=== PATIENT | male | born 1940 | race Asian ===

== ENCOUNTER 2016-08-17 19:16 | Inpatient (IN) | payer MEDICARE, OTHER ==
[~2016-08-17] VITALS: Ht 167.6 cm; Wt 129.8 kg
[~2016-08-17 19:16] MED LIST: AMLO-512 PO; ASPI-825 PO; CARV25 PO; LIDOCAINE HCL/PF 1% 2 ML VIAL IM ONE; OMEP10 PO; ROSU40 PO
[2016-08-17] MEDS ORDERED: FOLI0.8T2 PO (19:52)
[2016-08-17] MEDS ORDERED: FERR-89 PO (19:52)
[2016-08-17] MEDS ORDERED: LOSA50TA37 PO (19:53)
[2016-08-17 20:14] LABS: BASOPHILS # (AUTO) 0.02 K/uL (0.00-0.20); BASOPHILS % (AUTO) 0.4 % (0.0-2.0); EOSINOPHILS # (AUTO) 0.52 K/uL (0.00-0.70); EOSINOPHILS % (AUTO) 10.41 % (1.0-6.0); HEMOGLOBIN 9.3 g/dL (13.5-17.5); LYMPHOCYTES # (AUTO) 0.7 K/uL (1.0-4.8); LYMPHOCYTES % (AUTO) 13.8 % (22.0-44.0); MEAN CORPUSCULAR HEMOGLOBIN 29.1 pg (26.0-34.0); MEAN CORPUSCULAR VOLUME 88 fL (80-100); MONOCYTES # (AUTO) 0.4 K/uL (0.1-1.0); MONOCYTES % (AUTO) 8.8 % (2.0-9.0); NEUTROPHILS # (AUTO) 3.3 K/uL (1.8-7.7); NEUTROPHILS % (AUTO) 66.5 % (40.0-70.0); PLATELET COUNT (AUTO) 112 K/uL (150-450); RED BLOOD CELL COUNT(AUTO) 3.18 MIL/uL (4.50-5.90); RED CELL DISTRIBUTION WIDTH 15.8 % (11.5-14.5)
[2016-08-17 20:25] LABS: CREATININE 8.53 mg/dL (0.60-1.30); POTASSIUM 5.8 mmol/L (3.5-5.1)
[2016-08-17 20:31] LABS: ALBUMIN 3.5 g/dL (3.4-5.0); BILIRUBIN,TOTAL 0.4 mg/dL (0.1-1.0)
[2016-08-17] MEDS ORDERED: ALBUTEROL SULFATE 2.5 MG/0.5 ML NEB SOLUTION NEB ONE (21:00)
[2016-08-17] MEDS ORDERED: DEXTROSE 50%-WATER 25 GM/50 ML SYRINGE IVP ONE (21:00)
[2016-08-17] MEDS ORDERED: SODIUM BICARBONATE [ADULT] 8.4% 50 MEQ/50 ML SYRINGE IVP ONE (21:00)
[2016-08-17] MEDS ORDERED: INSULIN REGULAR, HUMAN 100 UNITS/ML IVP ONE (21:00)
[2016-08-17] MEDS ORDERED: SODIUM POLYSTYRENE SULFONATE 15 GM/60 ML SUSPENSION BOTTLE PO ONE (21:00)
[2016-08-17] MEDS ORDERED: 0.9% SODIUM CHLORIDE 5 ML NEB SOLUTION NEB ONE (22:00)
[2016-08-17] MEDS ORDERED: ACETAMINOPHEN 325 MG TABLET PO PRN (22:15)
[2016-08-17] MEDS ORDERED: ALBUTEROL SULFATE 2.5 MG/0.5 ML NEB SOLUTION NEB PRN (22:15)
[2016-08-17] MEDS ORDERED: BISACODYL 10 MG RECTAL RECTAL SUPPOSITORY PR PRN (22:15)
[2016-08-17 23:46] VITALS: BP 153/71
[2016-08-18] MEDS ORDERED: LIDOCAINE HCL/PF 1% 2 ML VIAL INJ ONE
[2016-08-18 04:27] VITALS: BP 151/79
[2016-08-18 06:46] LABS: CALCIUM, TOTAL 8.1 mg/dL (8.8-10.5); CREATININE 8.42 mg/dL (0.60-1.30); POTASSIUM 4.7 mmol/L (3.5-5.1)
[2016-08-18 07:51] VITALS: BP 171/84
[2016-08-18] MEDS: PANTOPRAZOLE SODIUM 40 MG DR TABLET PO SCH (08:18)
[2016-08-18] MEDS: HEPARIN SODIUM,PORCINE 5,000 UNITS/ML VIAL SQ SCH ×2 (08:18→21:02)
[2016-08-18] MEDS: DOCUSATE SODIUM 100 MG CAPSULE PO SCH ×3 (08:18→21:01)
[2016-08-18] MEDS: ASPIRIN 81 MG CHEWABLE TABLET PO SCH (08:19)
[2016-08-18] MEDS: VITAMIN B COMP/VIT C/FOLIC ACID CAPSULE PO SCH ×2 (08:19→12:13)
[2016-08-18] MEDS: CARVEDILOL 12.5 MG TABLET PO SCH ×2 (08:19→21:01)
[2016-08-18 11:00] VITALS: BP 136/67
[2016-08-18] MEDS ORDERED: SODIUM CHLORIDE 0.9% 2,000 ML IV ONE (13:09)
[2016-08-18 15:42] VITALS: BP 175/93
[2016-08-18] MEDS ORDERED: ALBUMIN HUMAN 25%-12.5GM/50ML IV BOTTLE IV ONE (18:22)
[2016-08-18 19:46] VITALS: BP 164/82
[2016-08-18] MEDS: ROSUVASTATIN CALCIUM 20 MG TABLET PO SCH (21:01)
[2016-08-18 23:49] VITALS: BP 140/70
[2016-08-19] VITALS (7 sets, daily range): BP systolic 144–188; BP diastolic 74–89
[2016-08-19 07:49] LABS: POTASSIUM 4.3 mmol/L (3.5-5.1)
[2016-08-19 07:50] LABS: CALCIUM, TOTAL 8.5 mg/dL (8.8-10.5); CREATININE 5.95 mg/dL (0.60-1.30); MAGNESIUM 1.5 mg/dL (1.80-2.40); PHOSPHORUS 4.9 mg/dL (2.5-4.9)
[2016-08-19] MEDS: VITAMIN B COMP/VIT C/FOLIC ACID CAPSULE PO SCH ×2 (09:00→09:34)
[2016-08-19] MEDS: CARVEDILOL 12.5 MG TABLET PO SCH ×2 (09:00→22:05)
[2016-08-19] MEDS: DOCUSATE SODIUM 100 MG CAPSULE PO SCH ×2 (09:00→22:05)
[2016-08-19] MEDS ORDERED: MAGNESIUM SULFATE 2 GM in DEXTROSE 5%-WATER 50 ML IV ONE (09:00)
[2016-08-19] MEDS: PANTOPRAZOLE SODIUM 40 MG DR TABLET PO SCH (09:34)
[2016-08-19] MEDS: ASPIRIN 81 MG CHEWABLE TABLET PO SCH (09:34)
[2016-08-19] MEDS: HEPARIN SODIUM,PORCINE 5,000 UNITS/ML VIAL SQ SCH ×2 (09:35→22:06)
[2016-08-19] MEDS ORDERED: SODIUM CHLORIDE 0.9% 2,000 ML IV ONE (11:34)
[2016-08-19] MEDS: CHOLECALCIFEROL (VIT D3) 1,000 UNITS TABLET PO SCH (12:00)
[2016-08-19] MEDS ORDERED: ALBUMIN HUMAN 25%-12.5GM/50ML IV BOTTLE IV PRN (12:15)
[2016-08-19] MEDS ORDERED: DiphenhydrAMINE HCL 50 MG/ML VIAL IVP PRN (12:15)
[2016-08-19] MEDS ORDERED: LIDOCAINE HCL/PF 1% 2 ML VIAL ID PRN (12:15)
[2016-08-19] MEDS ORDERED: MANNITOL 25%-12.5 GM/50 ML VIAL IVP PRN (12:15)
[2016-08-19] MEDS: ROSUVASTATIN CALCIUM 20 MG TABLET PO SCH (22:05)
[2016-08-20 03:55] VITALS: BP 144/73
[2016-08-20 06:58] LABS: BASOPHILS % (AUTO) 0.3 % (0.0-2.0); EOSINOPHILS % (AUTO) 7.4 % (1.0-6.0); HEMATOCRIT 34.5 % (41-53); HEMOGLOBIN 11.2 g/dL (13.5-17.5); LYMPHOCYTES # (AUTO) 1.2 K/uL (1.0-4.8); LYMPHOCYTES % (AUTO) 19.8 % (22.0-44.0); MEAN CORPUSCULAR HEMOGLOBIN 28.7 pg (26.0-34.0); MEAN CORPUSCULAR HGB CONC 32.4 G/dL (31.0-37.0); MEAN CORPUSCULAR VOLUME 89 fL (80-100); MONOCYTES # (AUTO) 0.7 K/uL (0.1-1.0); MONOCYTES % (AUTO) 10.7 % (2.0-9.0); NEUTROPHILS # (AUTO) 3.8 K/uL (1.8-7.7); NEUTROPHILS % (AUTO) 61.8 % (40.0-70.0); PLATELET COUNT (AUTO) 120 K/uL (150-450); RED CELL DISTRIBUTION WIDTH 15.8 % (11.5-14.5); WHITE BLOOD COUNT (AUTO) 6.2 K/uL (4.5-11.0)
[2016-08-20 07:35] LABS: CALCIUM, TOTAL 8.7 mg/dL (8.8-10.5); CREATININE 4.59 mg/dL (0.60-1.30); MAGNESIUM 1.6 mg/dL (1.80-2.40); PHOSPHORUS 4.2 mg/dL (2.5-4.9); POTASSIUM 3.9 mmol/L (3.5-5.1)
[2016-08-20 08:01] VITALS: BP 162/74
[2016-08-20] MEDS: DOCUSATE SODIUM 100 MG CAPSULE PO SCH ×2 (10:03→20:57)
[2016-08-20] MEDS: EPOETIN ALFA 10,000 UNITS/ML VIAL SQ SCH (10:03)
[2016-08-20] MEDS: HEPARIN SODIUM,PORCINE 5,000 UNITS/ML VIAL SQ SCH ×2 (10:03→20:57)
[2016-08-20] MEDS: CHOLECALCIFEROL (VIT D3) 1,000 UNITS TABLET PO SCH (10:04)
[2016-08-20] MEDS: PANTOPRAZOLE SODIUM 40 MG DR TABLET PO SCH (10:04)
[2016-08-20] MEDS: ASPIRIN 81 MG CHEWABLE TABLET PO SCH (10:04)
[2016-08-20] MEDS: VITAMIN B COMP/VIT C/FOLIC ACID CAPSULE PO SCH (10:04)
[2016-08-20] MEDS: CARVEDILOL 12.5 MG TABLET PO SCH ×2 (10:04→20:57)
[2016-08-20 11:02] VITALS: BP 141/76
[2016-08-20 15:34] VITALS: BP 150/68
[2016-08-20] MEDS ORDERED: MAGNESIUM OXIDE 400 MG TABLET PO ONE (16:00)
[2016-08-20] MEDS ORDERED: OMEP20 PO (16:06)
[2016-08-20] MEDS ORDERED: ROSU20 PO (16:06)
[2016-08-20 20:26] VITALS: BP 151/74
[2016-08-20] MEDS: ROSUVASTATIN CALCIUM 20 MG TABLET PO SCH (20:57)
[2016-08-20 23:27] VITALS: BP 134/65
[2016-08-21 04:21] VITALS: BP 147/67
[2016-08-21 07:18] VITALS: BP 157/73
[2016-08-21] MEDS: ASPIRIN 81 MG CHEWABLE TABLET PO SCH ×2 (08:47→08:55)
[2016-08-21] MEDS: HEPARIN SODIUM,PORCINE 5,000 UNITS/ML VIAL SQ SCH ×2 (08:48→21:24)
[2016-08-21] MEDS: CHOLECALCIFEROL (VIT D3) 1,000 UNITS TABLET PO SCH (08:48)
[2016-08-21] MEDS: PANTOPRAZOLE SODIUM 40 MG DR TABLET PO SCH (08:48)
[2016-08-21] MEDS: DOCUSATE SODIUM 100 MG CAPSULE PO SCH ×2 (08:48→21:24)
[2016-08-21] MEDS: CARVEDILOL 12.5 MG TABLET PO SCH ×2 (09:00→21:00)
[2016-08-21 11:07] VITALS: BP 144/74
[2016-08-21] MEDS ORDERED: CARV12 PO (12:50)
[2016-08-21 15:37] VITALS: BP 151/85
[2016-08-21 17:19] LABS: MAGNESIUM 1.4 mg/dL (1.80-2.40); POTASSIUM 3.1 mmol/L (3.5-5.1)
[2016-08-21] MEDS ORDERED: CARVEDILOL 25 MG TABLET PO ONE (17:45)
[2016-08-21] MEDS ORDERED: MAGNESIUM OXIDE 400 MG TABLET PO ONE (17:45)
[2016-08-21] MEDS ORDERED: POTASSIUM CHLORIDE 20 MEQ ER TABLET PO ONE (17:45)
[2016-08-21] MEDS: VITAMIN B COMP/VIT C/FOLIC ACID CAPSULE PO SCH (17:51)
[2016-08-21 20:40] VITALS: BP 101/65
[2016-08-21] MEDS: ROSUVASTATIN CALCIUM 20 MG TABLET PO SCH (21:24)
[2016-08-22 00:22] VITALS: BP 133/65
[2016-08-22 06:20] VITALS: BP 128/66
[2016-08-22 06:37] LABS: MAGNESIUM 1.5 mg/dL (1.80-2.40)
[2016-08-22 07:10] VITALS: BP 162/78
[2016-08-22] MEDS: CHOLECALCIFEROL (VIT D3) 1,000 UNITS TABLET PO SCH ×2 (07:59→08:00)
[2016-08-22] MEDS: VITAMIN B COMP/VIT C/FOLIC ACID CAPSULE PO SCH (08:00)
[2016-08-22] MEDS: PANTOPRAZOLE SODIUM 40 MG DR TABLET PO SCH (08:00)
[2016-08-22] MEDS: DOCUSATE SODIUM 100 MG CAPSULE PO SCH ×2 (08:00→08:04)
[2016-08-22] MEDS: ASPIRIN 81 MG CHEWABLE TABLET PO SCH (08:00)
[2016-08-22] MEDS: CARVEDILOL 12.5 MG TABLET PO SCH (08:00)
[2016-08-22] MEDS: HEPARIN SODIUM,PORCINE 5,000 UNITS/ML VIAL SQ SCH (08:01)
[2016-08-22] MEDS: EPOETIN ALFA 10,000 UNITS/ML VIAL SQ SCH (08:02)
[2016-08-22 11:03] VITALS: BP 144/71
[2016-08-22] MEDS ORDERED: MAGNESIUM OXIDE 400 MG TABLET PO ONE (11:30)
[2016-08-22] MEDS ORDERED: MAGN400T40 PO (12:12)
== END 2016-08-22 13:00 | disposition home or self-care (01) | DRG 682 ==
LOC: EMS 19:20 → 5N 22:00
PROVIDERS: ADMIT Internal Medicine; ATTEND Internal Medicine
PROC: 5A1D60Z (ICD-10-PCS; principal; 2016-08-18)
DX: I12.0 Hypertensive chronic kidney disease with stage 5 chronic kidney disease or end stage renal disease (principal); N18.6 End stage renal disease; E87.2 Acidosis; E87.5 Hyperkalemia; I48.91 Unspecified atrial fibrillation; D63.8 Anemia in other chronic diseases classified elsewhere; M10.9 Gout, unspecified; I25.10 Atherosclerotic heart disease of native coronary artery without angina pectoris; E78.5 Hyperlipidemia, unspecified; E55.9 Vitamin D deficiency, unspecified; Z79.82 Long term (current) use of aspirin; Z79.899 Other long term (current) drug therapy; Z98.890 Other specified postprocedural states; Z95.1 Presence of aortocoronary bypass graft; Z99.2 Dependence on renal dialysis
CPT/HCPCS: 82306; 83540; 83550; 83735; 83970; 84100; 84132; 87340; 90935; 93005; 94640; 96374; 96375; 99285; J0885; J1644; J1815; J3475; J3490; J7030; J7060; P9047

== ENCOUNTER 2017-03-21 17:10 | Inpatient (IN) | payer MEDICARE, OTHER ==
[~2017-03-21] VITALS: Ht 167.6 cm; Wt 59.0 kg
[~2017-03-21 17:10] MED LIST changes: +CARV12 PO; -CARV25 PO; +FOLI0.8T2 PO; -LIDOCAINE HCL/PF 1% 2 ML VIAL IM ONE; +MAGN400T40 PO; -OMEP10 PO; +OMEP20 PO; +ROSU20 PO; -ROSU40 PO
[2017-03-21 18:40] LABS: BASOPHILS # (AUTO) 0.01 K/uL (0.00-0.20); BASOPHILS % (AUTO) 0.2 % (0.0-2.0); EOSINOPHILS # (AUTO) 0.26 K/uL (0.00-0.70); EOSINOPHILS % (AUTO) 3.53 % (1.0-6.0); HEMATOCRIT 35.9 % (41-53); HEMOGLOBIN 11.9 g/dL (13.5-17.5); LYMPHOCYTES # (AUTO) 0.9 K/uL (1.0-4.8); LYMPHOCYTES % (AUTO) 12.2 % (22.0-44.0); MEAN CORPUSCULAR HEMOGLOBIN 29.6 pg (26.0-34.0); MEAN CORPUSCULAR HGB CONC 33.2 G/dL (31.0-37.0); MEAN CORPUSCULAR VOLUME 89 fL (80-100); MONOCYTES # (AUTO) 0.5 K/uL (0.1-1.0); MONOCYTES % (AUTO) 7.3 % (2.0-9.0); NEUTROPHILS # (AUTO) 5.6 K/uL (1.8-7.7); NEUTROPHILS % (AUTO) 76.9 % (40.0-70.0); PLATELET COUNT (AUTO) 154 K/uL (150-450); RED BLOOD CELL COUNT(AUTO) 4.03 MIL/uL (4.50-5.90); RED CELL DISTRIBUTION WIDTH 14.5 % (11.5-14.5); WHITE BLOOD COUNT (AUTO) 7.3 K/uL (4.5-11.0)
[2017-03-21 18:54] LABS: ANION GAP 8 mmol/L (8-16); CALCIUM, TOTAL 8.9 mg/dL (8.8-10.5); CARBON DIOXIDE 30 mmol/L (22-29); CHLORIDE 100 mmol/L (98-107); GLOMERULAR FILTR. RATE CALC 9 mL/min (>60); POTASSIUM 5.4 mmol/L (3.5-5.1); SODIUM SERUM 138 mmol/L (136-145); UREA NITROGEN, BLOOD 24 mg/dL (7-18)
[2017-03-21 18:56] LABS: INR 1.1 (0.9-1.1); PROTHROMBIN TIME 11.5 SEC (9.4-11.6)
[2017-03-21 18:59] LABS: ALANINE AMINOTRANSFERASE 30 U/L (12-78); ALBUMIN 3.7 g/dL (3.4-5.0); ASPARTATE AMINOTRANSFERASE 18 U/L (15-37); BILIRUBIN,TOTAL 0.4 mg/dL (0.1-1.0); CREATINE KINASE, TOTAL 74 U/L (39-308); TOTAL PROTEIN, SERUM 8.1 g/dL (6.4-8.2)
[2017-03-21] MEDS ORDERED: ACETAMINOPHEN 325 MG TABLET PO PRN (19:45)
[2017-03-21] MEDS ORDERED: 0.9% SODIUM CHLORIDE 10 ML SYRINGE IVP PRN (19:45)
[2017-03-21] MEDS ORDERED: ONDANSETRON HCL 4 MG/2 ML VIAL IVP PRN (19:45)
[2017-03-21 20:09] VITALS: BP 133/75
[2017-03-21 20:23] LABS: LACTIC ACID 2.6 mmol/L (0.4-2.0)
[2017-03-21 20:31] LABS: REFLEX LACTIC ACID? YES YES
[2017-03-21 23:58] VITALS: BP 123/67
[2017-03-22] MEDS ORDERED: OxyCODONE HCL/ACETAMINOPHEN 5-325 MG TABLET PO PRN ×2 (01:00)
[2017-03-22] MEDS ORDERED: ONDANSETRON HCL 4 MG/2 ML VIAL IVP PRN (01:00)
[2017-03-22] MEDS ORDERED: ACETAMINOPHEN 325 MG TABLET PO PRN (01:00)
[2017-03-22] MEDS ORDERED: 0.9% SODIUM CHLORIDE 10 ML SYRINGE IVP PRN (01:00)
[2017-03-22] MEDS ORDERED: MAGNESIUM HYDROXIDE SUSPENSION 30 ML UDCUP PO PRN (01:00)
[2017-03-22] MEDS ORDERED: INFLUENZA VIRUS VACCINE QVS 2017-18 (3YR+)/PF 60 MCG/0.5 ML SYRINGE IM ONE (01:15)
[2017-03-22] MEDS ORDERED: PNEUMOCOCCAL VACCINE POLYVALENT 0.5 ML VIAL [PPSV23] IM ONE (01:15)
[2017-03-22] MEDS: CARVEDILOL 12.5 MG TABLET PO SCH ×3 (02:02→21:00)
[2017-03-22 05:03] VITALS: BP 142/66
[2017-03-22 06:23] LABS: BASOPHILS % (AUTO) 0.3 % (0.0-2.0); EOSINOPHILS % (AUTO) 2.5 % (1.0-6.0); HEMOGLOBIN 12.4 g/dL (13.5-17.5); LYMPHOCYTES # (AUTO) 1.4 K/uL (1.0-4.8); LYMPHOCYTES % (AUTO) 19.2 % (22.0-44.0); MEAN CORPUSCULAR HEMOGLOBIN 30.2 pg (26.0-34.0); MEAN CORPUSCULAR HGB CONC 33.6 G/dL (31.0-37.0); MEAN CORPUSCULAR VOLUME 90 fL (80-100); MONOCYTES # (AUTO) 0.5 K/uL (0.1-1.0); MONOCYTES % (AUTO) 7.2 % (2.0-9.0); NEUTROPHILS # (AUTO) 5.3 K/uL (1.8-7.7); NEUTROPHILS % (AUTO) 70.8 % (40.0-70.0); PLATELET COUNT (AUTO) 175 K/uL (150-450); RED BLOOD CELL COUNT(AUTO) 4.11 MIL/uL (4.50-5.90); RED CELL DISTRIBUTION WIDTH 14.6 % (11.5-14.5); WHITE BLOOD COUNT (AUTO) 7.5 K/uL (4.5-11.0)
[2017-03-22 06:36] LABS: ALBUMIN 3.8 g/dL (3.4-5.0); BILIRUBIN,TOTAL 0.4 mg/dL (0.1-1.0); CALCIUM, TOTAL 9.1 mg/dL (8.8-10.5); CREATININE 7.17 mg/dL (0.60-1.30); POTASSIUM 4.8 mmol/L (3.5-5.1); TOTAL PROTEIN, SERUM 8.3 g/dL (6.4-8.2)
[2017-03-22 07:28] VITALS: BP 111/68
[2017-03-22] MEDS ORDERED: PANTOPRAZOLE SODIUM 40 MG/VIAL IVP SCH (09:00)
[2017-03-22] MEDS: MAGNESIUM OXIDE 400 MG TABLET PO SCH (09:35)
[2017-03-22] MEDS: ASPIRIN 81 MG CHEWABLE TABLET PO SCH (09:35)
[2017-03-22] MEDS: DOCUSATE SODIUM 100 MG CAPSULE PO SCH ×2 (09:35→21:00)
[2017-03-22] MEDS: VITAMIN B COMP/VIT C/FOLIC ACID CAPSULE PO SCH (12:24)
[2017-03-22] MEDS: AmLODIPine BESYLATE 10 MG TABLET PO SCH (12:24)
[2017-03-22 12:25] VITALS: BP 138/68
[2017-03-22 15:51] VITALS: BP 129/64
[2017-03-22] MEDS ORDERED: ROSUVASTATIN CALCIUM 20 MG TABLET PO SCH (18:00)
[2017-03-22 19:31] VITALS: BP 118/63
[2017-03-22 23:42] VITALS: BP 133/65
[2017-03-23 04:32] VITALS: BP 137/73
[2017-03-23 06:47] LABS: BASOPHILS % (AUTO) 0.2 % (0.0-2.0); EOSINOPHILS % (AUTO) 4.9 % (1.0-6.0); HEMATOCRIT 35.9 % (41-53); HEMOGLOBIN 12.1 g/dL (13.5-17.5); LYMPHOCYTES # (AUTO) 1.3 K/uL (1.0-4.8); LYMPHOCYTES % (AUTO) 16.9 % (22.0-44.0); MEAN CORPUSCULAR HEMOGLOBIN 30.1 pg (26.0-34.0); MEAN CORPUSCULAR HGB CONC 33.6 G/dL (31.0-37.0); MEAN CORPUSCULAR VOLUME 90 fL (80-100); MONOCYTES # (AUTO) 0.6 K/uL (0.1-1.0); MONOCYTES % (AUTO) 7.8 % (2.0-9.0); NEUTROPHILS # (AUTO) 5.4 K/uL (1.8-7.7); NEUTROPHILS % (AUTO) 70.2 % (40.0-70.0); PLATELET COUNT (AUTO) 169 K/uL (150-450); RED BLOOD CELL COUNT(AUTO) 4.01 MIL/uL (4.50-5.90); RED CELL DISTRIBUTION WIDTH 14.3 % (11.5-14.5); WHITE BLOOD COUNT (AUTO) 7.6 K/uL (4.5-11.0)
[2017-03-23 07:23] LABS: CREATININE 9.32 mg/dL (0.60-1.30); POTASSIUM 5.9 mmol/L (3.5-5.1)
[2017-03-23 07:36] VITALS: BP 141/75
[2017-03-23] MEDS: AmLODIPine BESYLATE 10 MG TABLET PO SCH (08:31)
[2017-03-23] MEDS: CARVEDILOL 12.5 MG TABLET PO SCH (08:31)
[2017-03-23] MEDS: VITAMIN B COMP/VIT C/FOLIC ACID CAPSULE PO SCH (08:41)
[2017-03-23] MEDS: ASPIRIN 81 MG CHEWABLE TABLET PO SCH (08:41)
[2017-03-23] MEDS: MAGNESIUM OXIDE 400 MG TABLET PO SCH (08:41)
[2017-03-23] MEDS: DOCUSATE SODIUM 100 MG CAPSULE PO SCH (08:48)
[2017-03-23] MEDS ORDERED: PANTOPRAZOLE SODIUM 40 MG DR TABLET PO SCH (09:00)
[2017-03-23] MEDS ORDERED: SODIUM CHLORIDE 0.9% 2,000 ML IV ONE (09:06)
[2017-03-23 11:27] VITALS: BP 136/65
== END 2017-03-23 13:20 | disposition home or self-care (01) | DRG 312 ==
LOC: EMS 17:12 → 5S 19:39
PROVIDERS: ADMIT Internal Medicine; ATTEND Internal Medicine
PROC: 3E0234Z Introduction of Serum, Toxoid and Vaccine into Muscle, Percutaneous Approach (ICD-10-PCS; 2017-03-22)
PROC: 5A1D70Z Performance of Urinary Filtration, Intermittent, Less than 6 Hours Per Day (ICD-10-PCS; principal; 2017-03-23)
DX: R55 Syncope and collapse (principal); E87.5 Hyperkalemia; I13.11 Hypertensive heart and chronic kidney disease without heart failure, with stage 5 chronic kidney disease, or end stage renal disease; N18.6 End stage renal disease; E55.9 Vitamin D deficiency, unspecified; E78.5 Hyperlipidemia, unspecified; I25.10 Atherosclerotic heart disease of native coronary artery without angina pectoris; M10.9 Gout, unspecified; Z95.1 Presence of aortocoronary bypass graft; Z79.82 Long term (current) use of aspirin; Z79.899 Other long term (current) drug therapy; Z99.2 Dependence on renal dialysis; Z23 Encounter for immunization
CPT/HCPCS: 70450; 83605; 87040; 87081; 90935; 93005; 93306; 93880; 99285; C9113; J7030

== ENCOUNTER 2017-10-08 12:25 | Emergency (ER) | payer MEDICARE, OTHER ==
[~2017-10-08] VITALS: Ht 165.1 cm; Wt 65.9 kg
[~2017-10-08 12:25] MED LIST changes: +FOLI0.8T22 PO; +LEVO2.5S4 PO; -MAGN400T40 PO
[2017-10-08] MEDS ORDERED: FURO20 PO (12:58)
[2017-10-08 13:15] LABS: GLUCOSE,POINT OF CARE 154 MG/DL (70-110)
[2017-10-08 13:19] LABS: BASOPHILS % (AUTO) 0.4 % (0.0-2.0); EOSINOPHILS % (AUTO) 3.3 % (1.0-6.0); HEMATOCRIT 31.3 % (41-53); HEMOGLOBIN 10.3 g/dL (13.5-17.5); LYMPHOCYTES % (AUTO) 13.5 % (22.0-44.0); MEAN CORPUSCULAR HEMOGLOBIN 26.7 pg (26.0-34.0); MEAN CORPUSCULAR VOLUME 81 fL (80-100); MONOCYTES # (AUTO) 0.8 K/uL (0.1-1.0); MONOCYTES % (AUTO) 10.5 % (2.0-9.0); NEUTROPHILS # (AUTO) 5.3 K/uL (1.8-7.7); NEUTROPHILS % (AUTO) 72.3 % (40.0-70.0); PLATELET COUNT (AUTO) 249 K/uL (150-450); RED BLOOD CELL COUNT(AUTO) 3.87 MIL/uL (4.50-5.90); RED CELL DISTRIBUTION WIDTH 18.1 % (11.5-14.5)
[2017-10-08 13:31] LABS: PROTHROMBIN TIME 10.9 SEC (9.4-11.6)
[2017-10-08 13:42] LABS: B-TYPE NATRIURETIC PEPTIDE 793 pg/mL (0-100)
[2017-10-08 14:22] VITALS: BP 123/63
[2017-10-08 14:24] LABS: ANION GAP 12 mmol/L (8-16); CALCIUM, TOTAL 8.7 mg/dL (8.8-10.5); CARBON DIOXIDE 30 mmol/L (22-29); CHLORIDE 97 mmol/L (98-107); CREATININE 5.49 mg/dL (0.60-1.30); GLOMERULAR FILTR. RATE CALC 10 mL/min (>60); GLUCOSE,RANDOM 142 mg/dL (70-110); POTASSIUM 3.2 mmol/L (3.5-5.1); SODIUM SERUM 139 mmol/L (136-145); UREA NITROGEN, BLOOD 17 mg/dL (7-18)
[2017-10-08 14:31] LABS: ALANINE AMINOTRANSFERASE 15 U/L (12-78); ALBUMIN 3.5 g/dL (3.4-5.0); ALKALINE PHOSPHATASE 72 U/L (46-116); ASPARTATE AMINOTRANSFERASE 12 U/L (15-37); BILIRUBIN,TOTAL 0.4 mg/dL (0.1-1.0); CREATINE KINASE, TOTAL 68 U/L (39-308); TOTAL PROTEIN, SERUM 8.3 g/dL (6.4-8.2)
== END 2017-10-08 15:17 | disposition home or self-care (01) ==
LOC: EMS 12:26
DX: R55 Syncope and collapse (principal); I11.0 Hypertensive heart disease with heart failure; I50.9 Heart failure, unspecified; E78.00 Pure hypercholesterolemia, unspecified; I25.2 Old myocardial infarction; K21.9 Gastro-esophageal reflux disease without esophagitis
CPT/HCPCS: 93005; 99285

== ENCOUNTER 2018-01-11 16:46 | Emergency (ER) | payer MEDICARE, OTHER ==
[~2018-01-11] VITALS: Ht 170.2 cm; Wt 64.0 kg
[~2018-01-11 16:46] MED LIST changes: +FURO20 PO
[2018-01-11 17:26] LABS: BASOPHILS % (AUTO) 0.7 % (0.0-2.0); EOSINOPHILS % (AUTO) 2.9 % (1.0-6.0); HEMATOCRIT 35.7 % (41-53); HEMOGLOBIN 11.8 g/dL (13.5-17.5); LYMPHOCYTES # (AUTO) 1.4 K/uL (1.0-4.8); LYMPHOCYTES % (AUTO) 29.5 % (22.0-44.0); MEAN CORPUSCULAR HEMOGLOBIN 29.7 pg (26.0-34.0); MEAN CORPUSCULAR VOLUME 90 fL (80-100); MONOCYTES # (AUTO) 0.6 K/uL (0.1-1.0); MONOCYTES % (AUTO) 12.8 % (2.0-9.0); NEUTROPHILS # (AUTO) 2.6 K/uL (1.8-7.7); NEUTROPHILS % (AUTO) 54.1 % (40.0-70.0); PLATELET COUNT (AUTO) 175 K/uL (150-450); RED BLOOD CELL COUNT(AUTO) 3.96 MIL/uL (4.50-5.90); RED CELL DISTRIBUTION WIDTH 17.5 % (11.5-14.5)
[2018-01-11 17:43] LABS: CALCIUM, TOTAL 8.8 mg/dL (8.8-10.5); CREATININE 6.54 mg/dL (0.60-1.30); POTASSIUM 3.6 mmol/L (3.5-5.1)
[2018-01-11 17:46] LABS: PROTHROMBIN TIME 10.2 SEC (9.4-11.6)
[2018-01-11 17:48] LABS: ALBUMIN 3.5 g/dL (3.4-5.0); BILIRUBIN,TOTAL 0.5 mg/dL (0.1-1.0); TOTAL PROTEIN, SERUM 7.4 g/dL (6.4-8.2)
[2018-01-11 19:08] VITALS: BP 123/69
== END 2018-01-11 19:55 | disposition home or self-care (01) ==
LOC: EMS 16:47
DX: R55 Syncope and collapse (principal); K21.9 Gastro-esophageal reflux disease without esophagitis; I25.2 Old myocardial infarction; E78.00 Pure hypercholesterolemia, unspecified; I13.2 Hypertensive heart and chronic kidney disease with heart failure and with stage 5 chronic kidney disease, or end stage renal disease; N18.6 End stage renal disease; I50.9 Heart failure, unspecified; Z99.2 Dependence on renal dialysis; Z95.1 Presence of aortocoronary bypass graft; Z79.899 Other long term (current) drug therapy; Z79.82 Long term (current) use of aspirin
CPT/HCPCS: 93005; 99285

== ENCOUNTER 2019-05-06 03:23 | Inpatient (IN) | payer MEDICARE, OTHER ==
[~2019-05-06] VITALS: Ht 170.2 cm; Wt 67.1 kg
[~2019-05-06 03:23] MED LIST changes: -AMLO-512 PO; +AMLO10TA7 PO; -ROSU20 PO; +ROSU20TA23 PO
[2019-05-06 05:31] LABS: BASOPHILS % (AUTO) 0.7 % (0.0-2.0); EOSINOPHILS % (AUTO) 5.5 % (1.0-6.0); HEMATOCRIT 39.4 % (41-53); HEMOGLOBIN 13.1 g/dL (13.5-17.5); LYMPHOCYTES # (AUTO) 1.5 K/uL (1.0-4.8); LYMPHOCYTES % (AUTO) 23.1 % (22.0-44.0); MEAN CORPUSCULAR HEMOGLOBIN 30.8 pg (26.0-34.0); MEAN CORPUSCULAR HGB CONC 33.3 G/dL (31.0-37.0); MEAN CORPUSCULAR VOLUME 93 fL (80-100); MONOCYTES # (AUTO) 0.7 K/uL (0.1-1.0); MONOCYTES % (AUTO) 10.2 % (2.0-9.0); NEUTROPHILS # (AUTO) 3.9 K/uL (1.8-7.7); NEUTROPHILS % (AUTO) 60.5 % (40.0-70.0); PLATELET COUNT (AUTO) 187 K/uL (150-450); RED BLOOD CELL COUNT(AUTO) 4.24 MIL/uL (4.50-5.90); RED CELL DISTRIBUTION WIDTH 13.9 % (11.5-14.5)
[2019-05-06 05:40] LABS: CALCIUM, TOTAL 9.7 mg/dL (8.8-10.5); CREATININE 8.5 mg/dL (0.60-1.30); POTASSIUM 4.8 mmol/L (3.5-5.1)
[2019-05-06 05:45] LABS: ALBUMIN 4.1 g/dL (3.4-5.0); BILIRUBIN,TOTAL 0.6 mg/dL (0.1-1.0); TOTAL PROTEIN, SERUM 8.1 g/dL (6.4-8.2)
[2019-05-06] MEDS ORDERED: SODIUM CHLORIDE 0.9% 500 ML IV ONE (06:45)
[2019-05-06] MEDS ORDERED: ACETAMINOPHEN 325 MG TABLET PO PRN ×2 (07:15→19:30)
[2019-05-06] MEDS ORDERED: 0.9% SODIUM CHLORIDE 10 ML SYRINGE IVP PRN (07:15)
[2019-05-06] MEDS ORDERED: ONDANSETRON HCL 4 MG/2 ML VIAL IVP PRN ×2 (07:15→19:30)
[2019-05-06 12:48] LABS: APPEARANCE,URINE CLEAR (CLEAR); BILIRUBIN,URINE NEGATIVE (NEGATIVE); GLUCOSE, URINE (UA) 100 mg/dL (NEGATIVE); KETONES,URINE NEGATIVE (NEGATIVE); LEUKOCYTE ESTERASE ,URINE NEGATIVE (NEGATIVE); NITRATE,URINE NEGATIVE (NEGATIVE); OCCULT BLOOD,URINE SMALL (NEGATIVE); PH,URINE 8.5 (5.0-8.0); PROTEIN,URINE SEE CONFIRM (NEGATIVE); UROBILINOGEN,URINE 0.2 mg/dL (<=1.0)
[2019-05-06 13:01] LABS: SULFOSALICYLIC ACID,URINE 3+ (Negative)
[2019-05-06 13:02] LABS: BACTERIA,URINE None Seen /HPF (None Seen); WBC,URINE None Seen /HPF (0-5)
[2019-05-06] MEDS: ASPIRIN 81 MG CHEWABLE TABLET PO SCH (13:49)
[2019-05-06] MEDS: ROSUVASTATIN CALCIUM 20 MG TABLET PO SCH (13:49)
[2019-05-06] MEDS: AmLODIPine BESYLATE 10 MG TABLET PO SCH (13:49)
[2019-05-06] MEDS: CARVEDILOL 12.5 MG TABLET PO SCH ×2 (13:49→22:27)
[2019-05-06] MEDS ORDERED: MECL-160 PO (14:56)
[2019-05-06 17:55] VITALS: BP 117/68
[2019-05-06] MEDS ORDERED: HYDROCODONE/ACETAMINOPHEN 5-325 MG TABLET PO PRN (19:30)
[2019-05-06] MEDS ORDERED: BISACODYL 10 MG RECTAL RECTAL SUPPOSITORY PR PRN (19:30)
[2019-05-06] MEDS ORDERED: ZOLPIDEM TARTRATE 5 MG TABLET PO PRN (19:30)
[2019-05-06] MEDS ORDERED: IPRATROPIUM BROMIDE 0.5 MG/2.5 ML NEB SOLUTION NEB PRN (19:30)
[2019-05-06] MEDS ORDERED: MAGNESIUM HYDROXIDE SUSPENSION 30 ML UDCUP PO PRN (19:30)
[2019-05-06] MEDS ORDERED: ALBUTEROL SULFATE 2.5 MG/0.5 ML NEB SOLUTION NEB PRN (19:30)
[2019-05-06] MEDS ORDERED: MORPHINE SULFATE 2 MG/ML SYRINGE IVP PRN (19:30)
[2019-05-06] MEDS ORDERED: INFLUENZA VIRUS VACCINE QVS 2019-20 (3YR+)/PF 60 MCG/0.5 ML SYRINGE IM ONE (19:45)
[2019-05-06 20:09] VITALS: BP 141/67
[2019-05-06] MEDS: FAMOTIDINE 20 MG TABLET PO SCH (22:27)
[2019-05-06] MEDS: DOCUSATE SODIUM 100 MG CAPSULE PO SCH (22:27)
[2019-05-07 00:06] VITALS: BP 126/72
[2019-05-07 05:12] VITALS: BP 139/72
[2019-05-07 06:56] LABS: BASOPHILS % (AUTO) 0.7 % (0.0-2.0); EOSINOPHILS % (AUTO) 8.4 % (1.0-6.0); HEMATOCRIT 33.9 % (41-53); HEMOGLOBIN 11.5 g/dL (13.5-17.5); LYMPHOCYTES # (AUTO) 1.1 K/uL (1.0-4.8); LYMPHOCYTES % (AUTO) 22.9 % (22.0-44.0); MEAN CORPUSCULAR HEMOGLOBIN 31.5 pg (26.0-34.0); MEAN CORPUSCULAR HGB CONC 33.9 G/dL (31.0-37.0); MEAN CORPUSCULAR VOLUME 93 fL (80-100); MONOCYTES # (AUTO) 0.4 K/uL (0.1-1.0); MONOCYTES % (AUTO) 8.7 % (2.0-9.0); NEUTROPHILS # (AUTO) 2.9 K/uL (1.8-7.7); NEUTROPHILS % (AUTO) 59.3 % (40.0-70.0); PLATELET COUNT (AUTO) 172 K/uL (150-450); RED BLOOD CELL COUNT(AUTO) 3.64 MIL/uL (4.50-5.90); RED CELL DISTRIBUTION WIDTH 13.8 % (11.5-14.5)
[2019-05-07 07:06] VITALS: BP 136/66
[2019-05-07 07:09] LABS: ALBUMIN 3.4 g/dL (3.4-5.0); BILIRUBIN,TOTAL 0.5 mg/dL (0.1-1.0); CALCIUM, TOTAL 8.8 mg/dL (8.8-10.5); CREATININE 10.54 mg/dL (0.60-1.30); MAGNESIUM 2.2 mg/dL (1.80-2.40); POTASSIUM 4.5 mmol/L (3.5-5.1); TOTAL PROTEIN, SERUM 6.9 g/dL (6.4-8.2)
[2019-05-07] MEDS ORDERED: [UNRECOGNIZED DRUG - OTHER] PO SCH (09:00)
[2019-05-07] MEDS ORDERED: AmLODIPine BESYLATE 10 MG TABLET PO SCH (09:00)
[2019-05-07] MEDS ORDERED: MISC MED-CONVERTED FROM AMBULATORY (Aspirin 81 MG) PO SCH (09:00)
[2019-05-07] MEDS: ASPIRIN 81 MG CHEWABLE TABLET PO SCH (09:38)
[2019-05-07] MEDS: ROSUVASTATIN CALCIUM 20 MG TABLET PO SCH (09:39)
[2019-05-07] MEDS: FAMOTIDINE 20 MG TABLET PO SCH ×2 (09:39→22:28)
[2019-05-07] MEDS: VITAMIN B COMP/VIT C/FOLIC ACID CAPSULE PO SCH (09:39)
[2019-05-07] MEDS: AmLODIPine BESYLATE 10 MG TABLET PO SCH (09:39)
[2019-05-07] MEDS: DOCUSATE SODIUM 100 MG CAPSULE PO SCH ×2 (09:40→22:28)
[2019-05-07] MEDS: CARVEDILOL 12.5 MG TABLET PO SCH ×2 (09:40→22:28)
[2019-05-07] MEDS: CETIRIZINE HCL 10 MG TABLET PO SCH (09:40)
[2019-05-07] MEDS: HEPARIN SODIUM,PORCINE 5,000 UNITS/ML VIAL SQ SCH ×2 (09:42→16:00)
[2019-05-07 11:15] VITALS: BP 141/70
[2019-05-07 16:07] VITALS: BP 113/61
[2019-05-08 00:50] VITALS: BP 121/65
[2019-05-08] MEDS: HEPARIN SODIUM,PORCINE 5,000 UNITS/ML VIAL SQ SCH ×2 (01:11→09:10)
[2019-05-08 06:05] VITALS: BP 150/74
[2019-05-08 07:58] VITALS: BP 132/68
[2019-05-08] MEDS: VITAMIN B COMP/VIT C/FOLIC ACID CAPSULE PO SCH (09:10)
[2019-05-08] MEDS: AmLODIPine BESYLATE 10 MG TABLET PO SCH (09:11)
[2019-05-08] MEDS: DOCUSATE SODIUM 100 MG CAPSULE PO SCH (09:11)
[2019-05-08] MEDS: ASPIRIN 81 MG CHEWABLE TABLET PO SCH (09:11)
[2019-05-08] MEDS: ROSUVASTATIN CALCIUM 20 MG TABLET PO SCH (09:11)
[2019-05-08] MEDS: CARVEDILOL 12.5 MG TABLET PO SCH (09:11)
[2019-05-08] MEDS: CETIRIZINE HCL 10 MG TABLET PO SCH (09:11)
[2019-05-08] MEDS: FAMOTIDINE 20 MG TABLET PO SCH (09:11)
[2019-05-08 11:27] VITALS: BP 115/65
== END 2019-05-08 14:30 | disposition home or self-care (01) | DRG 291 ==
LOC: EMS 03:23 → 5S 15:47
PROVIDERS: ADMIT Internal Medicine; ATTEND Internal Medicine
PROC: 5A1D70Z Performance of Urinary Filtration, Intermittent, Less than 6 Hours Per Day (ICD-10-PCS; principal; 2019-05-07)
DX: I13.2 Hypertensive heart and chronic kidney disease with heart failure and with stage 5 chronic kidney disease, or end stage renal disease (principal); I50.31 Acute diastolic (congestive) heart failure; N18.6 End stage renal disease; E87.1 Hypo-osmolality and hyponatremia; I16.0 Hypertensive urgency; E55.9 Vitamin D deficiency, unspecified; K21.9 Gastro-esophageal reflux disease without esophagitis; E78.00 Pure hypercholesterolemia, unspecified; M10.9 Gout, unspecified; E11.22 Type 2 diabetes mellitus with diabetic chronic kidney disease; E78.5 Hyperlipidemia, unspecified; I25.10 Atherosclerotic heart disease of native coronary artery without angina pectoris; I25.2 Old myocardial infarction; Z79.899 Other long term (current) drug therapy; Z95.1 Presence of aortocoronary bypass graft; Z99.2 Dependence on renal dialysis; Z98.890 Other specified postprocedural states
CPT/HCPCS: 70450; 83735; 87081; 87340; 93005; 93306; 93880; J1644; J7040

== ENCOUNTER 2020-07-15 20:44 | Inpatient (IN) | payer MEDICARE, OTHER ==
[~2020-07-15] VITALS: Ht 165.1 cm; Wt 72.0 kg
[~2020-07-15 20:44] MED LIST changes: +AMLO-258 PO; -AMLO10TA7 PO; +MECL-160 PO; -ROSU20TA23 PO; +ROSU20TA73 PO
[2020-07-15] MEDS ORDERED: SODIUM BICARBONATE [ADULT] 8.4% 50 MEQ/50 ML SYRINGE IVP ONE (21:00)
[2020-07-15] MEDS ORDERED: INSULIN REGULAR, HUMAN 100 UNITS/ML IVP ONE (21:00)
[2020-07-15] MEDS ORDERED: CALCIUM GLUCONATE 100 MG/ML 10 ML IVP ONE (21:00)
[2020-07-15] MEDS ORDERED: DEXTROSE 50%-WATER 25 GM/50 ML SYRINGE IVP ONE ×3 (21:00→23:00)
[2020-07-15 21:40] LABS: GLUCOSE,POINT OF CARE 94 MG/DL (70-110)
[2020-07-15 21:59] LABS: BASOPHILS % (AUTO) 0.3 % (0.0-2.0); EOSINOPHILS % (AUTO) 0.3 % (1.0-6.0); HEMATOCRIT 36.9 % (41-53); HEMOGLOBIN 11.9 g/dL (13.5-17.5); LYMPHOCYTES # (AUTO) 0.7 K/uL (1.0-4.8); LYMPHOCYTES % (AUTO) 10.1 % (22.0-44.0); MEAN CORPUSCULAR HEMOGLOBIN 30.5 pg (26.0-34.0); MEAN CORPUSCULAR HGB CONC 32.4 G/dL (31.0-37.0); MEAN CORPUSCULAR VOLUME 94 fL (80-100); MONOCYTES # (AUTO) 0.6 K/uL (0.1-1.0); MONOCYTES % (AUTO) 9.2 % (2.0-9.0); NEUTROPHILS # (AUTO) 5.6 K/uL (1.8-7.7); NEUTROPHILS % (AUTO) 80.1 % (40.0-70.0); PLATELET COUNT (AUTO) 103 K/uL (150-450); RED BLOOD CELL COUNT(AUTO) 3.92 MIL/uL (4.50-5.90); RED CELL DISTRIBUTION WIDTH 17.3 % (11.5-14.5)
[2020-07-15 22:06] LABS: COVID AG,FIA SOURCE NASOPHARYNGEAL
[2020-07-15] MEDS ORDERED: MORPHINE SULFATE 2 MG/ML SYRINGE IVP PRN (22:15)
[2020-07-15] MEDS ORDERED: ONDANSETRON HCL 4 MG/2 ML VIAL IVP PRN (22:15)
[2020-07-15] MEDS ORDERED: ACETAMINOPHEN 325 MG TABLET PO PRN (22:15)
[2020-07-15] MEDS ORDERED: OxyCODONE HCL/ACETAMINOPHEN 5-325 MG TABLET PO PRN (22:15)
[2020-07-15 22:18] LABS: INR 1.7 (0.9-1.1); PROTHROMBIN TIME 17.6 SEC (9.4-11.6)
[2020-07-15 22:30] LABS: INFLUENZA TYPE A NEGATIVE FOR TYPE A (NEGATIVE); INFLUENZA TYPE B NEGATIVE FOR TYPE B (NEGATIVE)
[2020-07-15 22:33] LABS: B-TYPE NATRIURETIC PEPTIDE > 5000 pg/mL (0-100)
[2020-07-15 22:42] LABS: ALANINE AMINOTRANSFERASE 133 U/L (12-78); ALBUMIN 3.8 g/dL (3.4-5.0); ALKALINE PHOSPHATASE 141 U/L (46-116); ANION GAP 25 mmol/L (8-16); ASPARTATE AMINOTRANSFERASE 168 U/L (15-37); BILIRUBIN,TOTAL 5.4 mg/dL (0.1-1.0); CALCIUM, TOTAL 8.7 mg/dL (8.8-10.5); CARBON DIOXIDE 18 mmol/L (22-29); CHLORIDE 89 mmol/L (98-107); CREATININE 12.26 mg/dL (0.60-1.30); GLOMERULAR FILTR. RATE CALC 4 mL/min (>60); GLUCOSE,RANDOM 172 mg/dL (70-110); SODIUM SERUM 132 mmol/L (136-145); TOTAL PROTEIN, SERUM 7.7 g/dL (6.4-8.2); UREA NITROGEN, BLOOD 84 mg/dL (7-18)
[2020-07-15 22:43] LABS: POTASSIUM 6.7 mmol/L (3.5-5.1)
[2020-07-15 22:44] LABS: CREATINE KINASE, TOTAL ONLY 1136 U/L (39-308)
[2020-07-15 22:46] LABS: PHOSPHORUS 9.4 mg/dL (2.5-4.9)
[2020-07-15] MEDS ORDERED: HEPARIN SODIUM 25000 UNITS/D5W 250 ML IV PRN ×2 (23:00→23:15)
[2020-07-15] MEDS ORDERED: HEPARIN SODIUM,PORCINE 5,000 UNITS/ML VIAL IVP PRN ×2 (23:15)
[2020-07-15 23:16] LABS: ABG A-A DIFF O2 166.5 mmHg (10-20.0); ABG BASE EXCESS -7.7 mmol/L (-2.0-3.0); ABG CARBOXYHEMOGLOBIN 0.3 % (0.0-1.5); ABG HCO3 19.4 mmol/L (22.0-26.0); ABG METHEMOGLOBIN 0.1 % (0.0-1.5); ABG OXYGEN CONTENT 17.8 mL/dL (15.0-23.0); ABG OXYGEN SATURATION 99.8 % (95.0-98.0); ABG OXYHEMOGLOBIN 99.4 % (94.0-100.0); ABG PCO2 25 mmHg (35-45); ABG PH 7.433 (7.35-7.450); ABG TOTAL HEMOGLOBIN 11.7 G/dL (12.0-18.0); O2 DEVICE,BLOOD GAS BIPAP (ROOM AIR); PO2, ARTERIAL BG 521.1 mmHg (75.0-83.0); SITE, BLOOD GAS LFT BRACHIAL; SOURCE, BLOOD GAS ARTERIAL; TEMPERATURE, FAHRENHEIT, BG 98.6 FAHREN (96.0-98.6)
[2020-07-16 01:03] VITALS: BP 130/82
[2020-07-16 03:33] VITALS: BP 130/82
[2020-07-16 06:10] LABS: GLUCOSE,POINT OF CARE 269 MG/DL (70-110)
[2020-07-16 07:45] VITALS: BP 128/63
[2020-07-16 08:00] VITALS: BP 142/71
[2020-07-16 08:10] LABS: BASOPHILS % (AUTO) 0.5 % (0.0-2.0); EOSINOPHILS % (AUTO) 0.7 % (1.0-6.0); HEMATOCRIT 34.9 % (41-53); HEMOGLOBIN 11.4 g/dL (13.5-17.5); LYMPHOCYTES # (AUTO) 0.8 K/uL (1.0-4.8); LYMPHOCYTES % (AUTO) 10.8 % (22.0-44.0); MEAN CORPUSCULAR HEMOGLOBIN 30.5 pg (26.0-34.0); MEAN CORPUSCULAR HGB CONC 32.8 G/dL (31.0-37.0); MEAN CORPUSCULAR VOLUME 93 fL (80-100); MONOCYTES # (AUTO) 0.9 K/uL (0.1-1.0); MONOCYTES % (AUTO) 11.8 % (2.0-9.0); NEUTROPHILS # (AUTO) 5.6 K/uL (1.8-7.7); NEUTROPHILS % (AUTO) 76.2 % (40.0-70.0); PLATELET COUNT (AUTO) 105 K/uL (150-450); RED BLOOD CELL COUNT(AUTO) 3.75 MIL/uL (4.50-5.90); RED CELL DISTRIBUTION WIDTH 17.5 % (11.5-14.5)
[2020-07-16 08:38] LABS: ALBUMIN 3.5 g/dL (3.4-5.0); BILIRUBIN,TOTAL 4.8 mg/dL (0.1-1.0); CALCIUM, TOTAL 8.4 mg/dL (8.8-10.5); CREATININE 12.87 mg/dL (0.60-1.30); POTASSIUM 5.6 mmol/L (3.5-5.1); TOTAL PROTEIN, SERUM 7.3 g/dL (6.4-8.2)
[2020-07-16] MEDS ORDERED: DOCUSATE SODIUM 100 MG CAPSULE PO SCH (09:00)
[2020-07-16] MEDS ORDERED: FAMOTIDINE 20 MG TABLET PO SCH (09:00)
[2020-07-16] MEDS ORDERED: CARVEDILOL 12.5 MG TABLET PO SCH (09:00)
[2020-07-16] MEDS ORDERED: ASPIRIN 81 MG CHEWABLE TABLET PO SCH (09:00)
[2020-07-16] MEDS ORDERED: HEPARIN SODIUM,PORCINE 5,000 UNITS/ML VIAL SQ SCH ×2 (09:00)
[2020-07-16] MEDS ORDERED: DOPamine HCL 400 MG/D5%-WATER 250 ML IV PRN (11:30)
[2020-07-16] MEDS ORDERED: RINGERS SOLUTION,LACTATED 500 ML IV ONE ×2 (11:30)
[2020-07-16 11:32] VITALS: BP 87/52
[2020-07-16] MEDS ORDERED: 0.9% SODIUM CHLORIDE 10 ML SYRINGE IVP ONE (12:10)
[2020-07-16] MEDS ORDERED: EPINEPHrine 1:10,000 [1 MG/10 ML] SYRINGE IVP ONE (12:10)
[2020-07-16] MEDS ORDERED: CALCIUM GLUCONATE 100 MG/ML 10 ML IVP ONE (12:10)
[2020-07-16] MEDS ORDERED: DEXTROSE 50%-WATER 25 GM/50 ML SYRINGE IVP ONE (12:10)
[2020-07-16] MEDS ORDERED: SODIUM BICARBONATE [ADULT] 8.4% 50 MEQ/50 ML SYRINGE IVP ONE (12:10)
[2020-07-16 14:12] LABS: GLUCOSE,POINT OF CARE 88 MG/DL (70-110)
[2020-07-16 14:12] LABS: GLUCOSE,POINT OF CARE 65 MG/DL (70-110)
[2020-07-16] MEDS ORDERED: ROSUVASTATIN CALCIUM 10 MG TABLET PO SCH (21:00)
== END 2020-07-16 12:11 | DRG 640 ==
LOC: EMS 20:48 → ICU 22:06
PROVIDERS: ADMIT Internal Medicine; ATTEND Internal Medicine
PROC: 5A09357 Assistance with Respiratory Ventilation, Less than 24 Consecutive Hours, Continuous Positive Airway Pressure (ICD-10-PCS; 2020-07-15)
PROC: 5A12012 Performance of Cardiac Output, Single, Manual (ICD-10-PCS; principal; 2020-07-16)
PROC: 5A09357 Assistance with Respiratory Ventilation, Less than 24 Consecutive Hours, Continuous Positive Airway Pressure (ICD-10-PCS; 2020-07-16)
DX: E87.5 Hyperkalemia (principal); J96.01 Acute respiratory failure with hypoxia; N18.6 End stage renal disease; I13.2 Hypertensive heart and chronic kidney disease with heart failure and with stage 5 chronic kidney disease, or end stage renal disease; D68.9 Coagulation defect, unspecified; I24.8 Other forms of acute ischemic heart disease; R17 Unspecified jaundice; N17.9 Acute kidney failure, unspecified; K21.9 Gastro-esophageal reflux disease without esophagitis; I50.9 Heart failure, unspecified; E78.00 Pure hypercholesterolemia, unspecified; D63.1 Anemia in chronic kidney disease; E83.39 Other disorders of phosphorus metabolism; I25.10 Atherosclerotic heart disease of native coronary artery without angina pectoris; Z20.822 Contact with and (suspected) exposure to COVID-19; I46.9 Cardiac arrest, cause unspecified; E78.5 Hyperlipidemia, unspecified; M10.9 Gout, unspecified; Z95.1 Presence of aortocoronary bypass graft; Z99.2 Dependence on renal dialysis
CPT/HCPCS: 82805; 83735; 84100; 84132; 87081; 87426; 87804; 92950; 93005; 94660; 99291; G0378; J0171; J0610; J1265; J1644; J1815; J3490; J7120; 36415-L1; 36415-TC; 71045-TC; U0003